=== PATIENT | female | born 1975 | race Caucasian/White ===

== ENCOUNTER → 2020-11-25 | Day surgery (SDC) | payer BC ==
[~2020-11-25] MED LIST: Ketamine 200 MG/20 ML MDV ONE; Lactated Ringers 1,000 ML IV SCH; Lidocaine 2% 5 ML SDV ONE; Propofol 200 MG/20 ML SDV ONE; fentaNYL 100 MCG/2 ML SDV ONE
[2020-11-25 11:33] VITALS: BP 116/64; PULSE 83
--- NOTE | 2020-11-25 11:48 | OR ---
DATE OF OPERATION: 11/25/2020 PREOPERATIVE DIAGNOSIS: EPIGASTRIC PAIN. POSTOPERATIVE DIAGNOSIS: EPIGASTRIC PAIN. SURGEON: Hakeem Vásquez MD PROCEDURE: DIAGNOSTIC COLONOSCOPY WITH BIOPSIES X2, JANIYA. ANESTHESIA: MAC. COMPLICATIONS: None. SPECIMEN: 1. Antral biopsy x2. 2. Antral JANIYA. FINDINGS: 1. Full-length diagnostic EGD. 2. Multiple gastric ulcers. RECOMMENDATIONS: The patient will be kept on proton pump therapy and treated for JANIYA as necessary. She has been counseled on nicotine, caffeine, alcohol, and NSAIDs. INDICATIONS: The patient was having some issues with epigastric pain and weight loss, feeling full when she eats. We proceeded with diagnostic EGD. DESCRIPTION OF PROCEDURE: The patient was prepped and draped, placed in the left lateral decubitus position. A lubricated Olympus gastroscope was inserted over a bit, advanced to cricopharyngeus area, and easily intubated into the esophagus. The esophageal lining was benign in its entire course. The Z-line was crisp and sharp at 40 cm. There was no hernia or spontaneous GERD seen. No distal esophagitis, stricturing, ulcerations. Scope advanced into the stomach through the pylorus and into the second portion of the duodenum. This and the duodenal bulb were unremarkable. The scope was brought back into the stomach and retroflexed. The upper fundus and cardia were completely benign. Upon straightening, the rest of the fundus appeared benign. The antrum had 3 to 4 small erosions/ulcerations without any active bleeding or adherent clot. Biopsies x2 of the bilingual inside sales representative areas were taken along with a CLOtest from the unaffected portion of the antrum. Air was then suctioned. Scope removed without complication. ROBERTA/ELTON /[id number]
== END ==
LOC: CC.SDS 07:00
PROVIDERS: ATTEND Family Medicine
DX: K29.50 Unspecified chronic gastritis without bleeding (principal); K25.9 Gastric ulcer, unspecified as acute or chronic, without hemorrhage or perforation; F41.9 Anxiety disorder, unspecified; F32.9 Major depressive disorder, single episode, unspecified; Z79.899 Other long term (current) drug therapy; Z86.16 Personal history of COVID-19; Z98.890 Other specified postprocedural states
CPT/HCPCS: 00731; 36415; 84703; 87081; J2704; J3010; J7120